=== PATIENT | male | born 1950 | race Caucasian/White ===

== ENCOUNTER → 2019-02-20 12:36 | Outpatient (CLI) | payer MEDICARE, OTHER ==
[2013-11-19 12:21] VITALS: BMI 34.4
[~2019-02-20 12:36] MED LIST: BACTRIM DS TABL1 TAB PO; BYSTOLIC20 MG PO; CARDIZEM CD240 MG PO; DITROPAN PO; FLOMAX0.4 MG PO; NORCO 5/325 TAB1 TA1 PO; PHENAZOPYRIDIN200 MG PO; PRILOSEC20 MG PO; ZOFRAN ODT4 MG/UDTAB OR
== END | disposition home or self-care (01) ==
LOC: D.HCCARDIO 12:36
PROVIDERS: ATTEND Internal Medicine Cardiovascular Disease
DX: I10 Essential (primary) hypertension (principal)

== ENCOUNTER → 2020-11-03 08:35 | Outpatient (CLI) | payer MEDICARE, OTHER ==
[2013-11-19 12:21] VITALS: BMI 34.4
== END | disposition home or self-care (01) ==
LOC: D.HCCECHO 10-20 09:00
PROVIDERS: ATTEND Internal Medicine Cardiovascular Disease
DX: I34.0 Nonrheumatic mitral (valve) insufficiency (principal)